=== PATIENT | male | born 1960 | race Two or more races ===

== ENCOUNTER 2019-07-23 11:03 | Inpatient (IN) | payer OTHER ==
[~2019-07-23] VITALS: Ht 172.7 cm; Wt 63.5 kg
[2019-07-23] MEDS ORDERED: RISPERDAL1 MG (11:54)
[2019-07-23] MEDS ORDERED: DEPAKOTE ER500 MG (11:54)
[2019-07-25] MEDS ORDERED: LOSARTAN POTASS50 MG PO (19:04)
[2019-07-25] MEDS ORDERED: LIPITOR40 MG PO (19:04)
[2019-07-25] MEDS ORDERED: CLOPIDOGREL BIS75 MG PO (19:04)
[2019-07-25] MEDS ORDERED: Depakote 250MG DR TA PO (19:04)
[2019-07-25] MEDS ORDERED: RISPERDAL1 MG PO (19:04)
== END 2019-07-25 19:39 | disposition home or self-care (01) | DRG 69 ==
LOC: ER 11:03 → MEDJ 16:51
PROVIDERS: ADMIT Internal Medicine
PROC: BW28ZZZ Computerized Tomography (CT Scan) of Head (ICD-10-PCS; principal; 2019-07-23)
PROC: B345ZZZ Ultrasonography of Bilateral Common Carotid Arteries (ICD-10-PCS; 2019-07-23)
PROC: B348ZZZ Ultrasonography of Bilateral Internal Carotid Arteries (ICD-10-PCS; 2019-07-23)
PROC: B246ZZZ Ultrasonography of Right and Left Heart (ICD-10-PCS; 2019-07-23)
PROC: B030ZZZ Magnetic Resonance Imaging (MRI) of Brain (ICD-10-PCS; 2019-07-23)
DX: G45.8 Other transient cerebral ischemic attacks and related syndromes (principal); I69.398 Other sequelae of cerebral infarction; R00.1 Bradycardia, unspecified; I10 Essential (primary) hypertension
CPT/HCPCS: 70551